=== PATIENT | male | born 1950 | race Caucasian/White ===

== ENCOUNTER 2022-06-23 10:18 | Day surgery (SDC) | payer MEDICARE, BC ==
[2022-06-21 17:21] VITALS: BMI 24.3
[~2022-06-23 10:18] MED LIST: LIDOCAINE 1% (10MG/ML) FOR IV START INTRADERMA PRN
[2022-06-23 10:34] VITALS: TEMP 98
[2022-06-23] MEDS: LACTATED RINGERS 1,000 ML IV SCH ×2 (10:39→12:14)
[2022-06-23] MEDS ORDERED: PROPOFOL 10 MG/ML 20 ML VIAL IV ONE (12:16)
[2022-06-23] MEDS ORDERED: LIDOCAINE 2% INJ 20 MG/ML (2 ML VIAL) ONE (12:16)
--- NOTE | 2022-06-23 12:58 | P.PCN ---
Date of Procedure: 06/23/22 Procedure(s) Performed: BRIEF HISTORY: Patient is a 72-year-old pleasant white male scheduled for an elective colonoscopy as a part of large colon polyp that was noted in the transverse colon noted on a routine screening colonoscopy in January 11. He was noted to have a 4 cm broad-based transverse colon polyp that was partially removed. The biopsy of the polyp reveals adenoma. PROCEDURE PERFORMED: Colonoscopy with snare polypectomy, biopsy, Endo Clip placement and argon plasma coagulation. PREOPERATIVE DIAGNOSIS: Follow-up large transverse colon polyp. IV sedation per Anesthesia. PROCEDURE: After informed consent was obtained, the patient, was brought into the endoscopy unit. IV sedation was administered by Anesthesia under continuous monitoring. Digital rectal examination was normal. Initially the Olympus CF-160 flexible video colonoscope was then inserted in the rectum, gradually advanced into the cecum without any difficulty. Careful examination was performed as the scope was gradually being withdrawn. Ileocecal valve and the appendiceal orifice were visualized and appeared normal. Prep was excellent. Mucosa of the cecum, appeared normal. In the ascending colon there was a 1 cm polyp removed by snare polypectomy. In the mid transverse colon at the site of polypectomy of the large transverse colon there was a 2.5 cm flat residual polyp identified. The polyp was removed by snare polypectomy followed by multiple biopsies. Following this I did have some plasma coagulation for the rest of the residual Polyp. Endo Clip was also placed to prevent post-polypectomy. Rest of the transverse colon, descending colon, sigmoid colon, and rectum appeared normal. Retroflexion was performed in the rectum and no lesions were seen. The patient tolerated the procedure well. IMPRESSION: 2.5 cm residual flat transverse colon polyp at the site of previous polypectomy, status post snare polypectomy followed by multiple biopsies, argon plasma coagulation and Endo Clip placement 1 cm ascending colon polyp status post snare polypectomy RECOMMENDATIONS: Findings of this examination were discussed with the patientas well as his family. He was advised to follow with the biopsy results. Will plan a repeat colonoscopy in one year..
[2022-06-23 13:07] VITALS: RESP 17
[2022-06-23 13:29] VITALS: BP 180/80; PULSE 52
== END 2022-06-23 13:40 | disposition home or self-care (01) ==
LOC: ORWHC2ENDO 10:18
PROVIDERS: ATTEND Internal Medicine Gastroenterology
DX: Z12.11 Encounter for screening for malignant neoplasm of colon (principal); D12.3 Benign neoplasm of transverse colon; Z86.010 Personal history of colon polyps; I10 Essential (primary) hypertension; Z79.899 Other long term (current) drug therapy; F17.200 Nicotine dependence, unspecified, uncomplicated
CPT/HCPCS: 88305; 45382; 45380; 45385; J2704; J2001

== ENCOUNTER → 2024-03-07 | Outpatient (CLI) | payer MEDICARE, BC ==
[2024-03-07 15:35] LABS: Basophils # (A) 0.05 X 10*3/uL (0.00-0.10); Basophils % (A) 0.8 %; Eosinophils # (A) 0.16 X 10*3/uL (0.04-0.35); Eosinophils % (A) 2.5 %; HCT 41.4 % (39.6-50.0); HGB 14.6 g/dL (13.0-17.0); Lymphocytes # (A) 1.14 X 10*3/uL (0.90-5.00); MCH 35.4 pg (27.0-32.0); MCHC 35.3 g/dL (32.0-37.0); MCV 100.2 FL (80.0-97.0); Mean Platelet Volume 9.7 FL (9.5-12.2); Monocytes # (A) 0.49 X 10*3/uL (0.20-1.00); Monocytes % (A) 7.7 %; NRBC Per 100 WBC 0 X 10*3/uL (0.00-0.01); Neutrophils % (A) 70.8 %; Platelet Count 146 X 10*3/uL (140-440); RBC 4.13 X 10*6/uL (4.40-5.60); RDW 12.5 % (11.5-14.5); WBC 6.35 X 10*3/uL (4.50-10.00)
[2024-03-07 16:39] LABS: Hepatitis B Surface Antigen Nonreactive (Nonreactive); Hepatitis C IgG Antibody Nonreactive (Nonreactive)
[2024-03-07 16:40] LABS: % Iron Saturation 55.18 (15.00-50.00); ALT 62 U/L (10-49); AST 60 U/L (14-35); Albumin 4.6 g/dL (3.8-4.9); Albumin/Globulin Ratio 2.42 Ratio (1.60-3.17); Alkaline Phosphatase 61 U/L (41-126); BUN/Creat Ratio 9.18 Ratio (12.00-20.00); Blood Urea Nitrogen 10.1 mg/dL (9.0-27.0); Calcium 9.4 mg/dL (8.7-10.3); Carbon Dioxide 25.2 mmol/L (21.6-31.8); Chloride 102 mmol/L (96-109); Globulin 1.9 g/dL (1.6-3.3); Glucose 96 mg/dL (70-110); Iron 197 UG/DL (65-175); Potassium 4.8 mmol/L (3.5-5.5); Sodium 140 mmol/L (135-145); Total Bilirubin 1.3 mg/dL (0.3-1.2); Total Iron Binding Capacity 357 UG/DL (228-460); Total Protein 6.5 g/dL (6.2-8.2)
[2024-03-07 17:01] LABS: Ceruloplasmin 21.2 mg/dL (20.0-60.0)
== END | disposition home or self-care (01) ==
LOC: LABWHC1 09:27
PROVIDERS: ATTEND Internal Medicine Gastroenterology
DX: R74.01 Elevation of levels of liver transaminase levels (principal)
CPT/HCPCS: 36415; 80053; 82103; 82390; 82728; 83516; 83540; 83550; 85025; 86038; 86803; 87340

== ENCOUNTER → 2024-03-07 | Outpatient (CLI) | payer MEDICARE, BC ==
--- NOTE | 2024-03-07 13:14 | US ---
EXAMINATION TYPE: US liver DATE OF EXAM: 03/07/2024 COMPARISON: NONE CLINICAL INDICATION: Male, 73 years old with history of R74.01 ELEVATION OF LIVER ENZYMES; Patient de nies any signs or symptoms; Hx HTN TECHNIQUE: Multiple sonographic images of the right upper quadrant are obtained. FINDINGS: EXAM MEASUREMENTS: Liver Length: 16.3 cm Gallbladder Wall: 0.2 cm CBD: 0.3 cm Right Kidney: 9.4 x 5.0 x 4.6 cm Pancreas: wnl Liver: Increased attenuation, decreased visualization of vessels suggestive of fatty infiltrate Gallbladder: wnl Evidence for sonographic Dave's sign: No CBD: wnl Right Kidney: wnl IMPRESSION: Steatosis with no other significant abnormality seen.
== END | disposition home or self-care (01) ==
LOC: RADUSWWP 09:08
PROVIDERS: ATTEND Family Medicine
DX: K76.0 Fatty (change of) liver, not elsewhere classified (principal); R74.01 Elevation of levels of liver transaminase levels; I10 Essential (primary) hypertension
CPT/HCPCS: 76705

== ENCOUNTER 2024-04-18 09:23 | Day surgery (SDC) | payer MEDICARE, BC ==
[~2024-04-18 09:23] MED LIST changes: +MIDAZOLAM 2 MG/2 ML VIAL IV PRN
[2024-04-18 09:52] VITALS: TEMP 97.6
[2024-04-18] MEDS: IV FLUID CONTINUATION 1,000 ML IV ONE (10:00)
[2024-04-18] MEDS: LACTATED RINGERS 1,000 ML IV SCH (10:02)
[2024-04-18] MEDS ORDERED: PROPOFOL 10 MG/ML 20 ML VIAL IV ONE (10:41)
--- NOTE | 2024-04-18 11:04 | P.PCN ---
Date of Procedure: 04/18/24 Procedure(s) Performed: BRIEF HISTORY: Patient is a 73-year-old pleasant white male scheduled for an elective colonoscopy as a part of follow-up of by history of colon polyps. Last colonoscopy was 2 years ago and was noted to have a 2 cm residual transverse colon polyp that was removed.. PROCEDURE PERFORMED: Colonoscopy with snare polypectomy. PREOPERATIVE DIAGNOSIS: Follow-up large transverse colon polyp. IV sedation per Anesthesia. PROCEDURE: After informed consent was obtained, the patient, was brought into the endoscopy unit. IV sedation was administered by Anesthesia under continuous monitoring. Digital rectal examination was normal. Initially the Olympus CF-160 flexible video colonoscope was then inserted in the rectum, gradually advanced into the cecum without any difficulty. Careful examination was performed as the scope was gradually being withdrawn. Ileocecal valve and the appendiceal orifice were visualized and appeared normal. Prep was excellent. Mucosa of the cecum, ascending colon, appeared normal. In the distal transverse colon there was a 7 mm residual polyp at the site of previous polypectomy which was removed by snare polypectomy. Rest of the transverse colon, descending colon, appeared normal. The sigmoid colon there was a 5 mm polyp removed by snare polypectomy. Scattered sigmoid diverticulosis seen. Sigmoid colon, and rectum appeared normal. Retroflexion was performed in the rectum and no lesions were seen. The patient tolerated the procedure well. IMPRESSION: 7 mm descending transverse colon polyp at 70 cm from the anal verge s/p polypectomy 5 mm sigmoid colon polyp status post polypectomy Scattered sigmoid diverticulosis RECOMMENDATIONS: Findings of this examination were discussed with the patient as well as his family. He was advised to follow-up with the biopsy results and recommended repeat colonoscopy in 3 years..
[2024-04-18 11:33] VITALS: BP 126/73; PULSE 63; RESP 20
== END 2024-04-18 11:37 | disposition home or self-care (01) ==
LOC: ORWHC2ENDO 09:23
PROVIDERS: ATTEND Internal Medicine Gastroenterology
DX: Z12.11 Encounter for screening for malignant neoplasm of colon (principal); D12.3 Benign neoplasm of transverse colon; D12.5 Benign neoplasm of sigmoid colon; K57.30 Diverticulosis of large intestine without perforation or abscess without bleeding; I10 Essential (primary) hypertension; F17.210 Nicotine dependence, cigarettes, uncomplicated; F10.90 Alcohol use, unspecified, uncomplicated; Z79.899 Other long term (current) drug therapy; Z98.890 Other specified postprocedural states
CPT/HCPCS: 88305; 45385; J2704

== ENCOUNTER 2025-01-18 23:07 | Emergency (ER) | payer MEDICARE, BC ==
[2025-01-18 23:21] VITALS: TEMP 97.6
--- NOTE | 2025-01-18 23:49 | ED ---
Head Injury HPI - General Chief complaint: Head Injury Stated complaint: Fall- head injury Time Seen by Provider: 01/18/25 23:49 Source: patient, family, RN notes reviewed Mode of arrival: ambulatory Limitations: no limitations - History of Present Illness Initial comments: 74-year-old male presented to the ER for evaluation of head injury. Patient sta noble he was getting something out of the refrigerator when he accidentally lost his balance causing him to fall backwards and hit his head on what he believes was the door frame. He notes a laceration to his posterior scalp. He denies any loss of consciousness or blood thinner use. Tetanus is up-to-date. No other injuries or complaints. No dizziness, lightheadedness, nausea or vomiting post incident. - Related Data Home Medications Medication Instructions Recorded Confirmed amLODIPine [Norvasc] 10 mg PO DAILY 06/21/22 04/18/24 Losartan [Cozaar] 25 mg PO DAILY 04/16/24 04/18/24 Allergies/Adverse reactions: Allergies Allergy/AdvReac Type Severity Reaction Status Date / Time No Known Allergies Allergy Verified 01/18/25 23:18 Review of Systems ROS Statement: Those systems with pertinent positive or pertinent negative responses have been documented in the HPI. ROS Other: All systems not noted in ROS Statement are negative. Past Medical History Past Medical History: Hypertension Additional Past Medical History / Comment(s): PAST HX LARGE POLYP History of Any Multi-Drug Resistant Organisms: None Reported Additional Past Surgical History / Comment(s): DENTAL IMPLANTS. COLONOSCOPY WITH PARTIAL POLYPECTOMY Past Anesthesia/Blood Transfusion Reactions: No Reported Reaction Past Psychological History: No Psychological Hx Reported Smoking Status: Current every day smoker Past Alcohol Use History: Daily Past Drug Use History: None Reported - Past Family History Mother Family Medical History: No Reported History General Exam Limitations: no limitations General appearance: alert, in no apparent distress Head exam: Present: other (8 cm laceration noted to right parietal scalp) Eye exam: Present: normal appearance, PERRL, EOMI. Absent: scleral icterus, conjunctival injection, periorbital swelling Pupils: Present: normal accommodation ENT exam: Present: normal exam, normal oropharynx, mucous membranes moist, TM's normal bilaterally, other (No raccoon eyes, mcclain signs or hemotympanums) Neck exam: Present: normal inspection. Absent: tenderness, meningismus, lymphadenopathy Respiratory exam: Present: normal lung sounds bilaterally. Absent: respiratory distress, wheezes, rales, rhonchi, stridor Cardiovascular Exam: Present: regular rate, normal rhythm, normal heart sounds. Absent: systolic murmur, diastolic murmur, rubs, gallop, clicks Neurological exam: Present: alert, oriented X3, CN II-XII intact Skin exam: Present: warm, dry, intact, normal color. Absent: rash Course Vital Signs 01/18/25 01/19/25 23:18 01:20 Temperature 97.6 F Pulse Rate 97 72 Respiratory 16 18 Rate Blood Pressure 166/80 144/91 O2 Sat by Pulse 98 Oximetry Procedures - Laceration Laceration #1 Consent Obtained: verbal consent Indication: laceration Site: scalp Size (cm): 8 Description: flap Depth: simple, single layer Pre-repair: wound explored, irrigated extensively, deep structures intact Type of Sutures: other (Dermal declan) Number of Sutures: 7 Patient Tolerated Procedure: well Medical Decision Making - Medical Decision Making Was pt. sent in by a medical professional or institution (Dr. PA, EDUCATION INSTRUCTOR, urgent care, hospital, or fpc...) When possible be specific @ -No Did you speak to anyone other than the patient for history (EMS, parent, family, police, friend...)? What history was obtained from this source @ -Patient's , at bedside, aiding in HPI and past medical history. Did you review nursing and triage notes (agree or disagree)? Why? @ -I reviewed and agree with nursing and triage notes Were old charts reviewed (outside hosp., previous admission, EMS record, old EKG, old radiological studies, urgent care reports/EKG's, fpc records)? Report findings @ -No old charts were reviewed Differential Diagnosis (chest pain, altered mental status, abdominal pain women, abdominal pain men, vaginal bleeding, weakness, fever, dyspnea, syncope, headache, dizziness, GI bleed, back pain, seizure, CVA, palpatations, mental health, musculoskeletal)? @ -Contusion, hematoma, intracranial hemorrhage, skull fracture, laceration, concussion this list is not meant to be all-inclusive EKG interpreted by me (3pts min.). @ -None done X-rays interpreted by me (1pt min.). @ -None done CT interpreted by me (1pt min.). @ -CT brain negative for acute intracranial process or mass effect. Laceration noted U/S interpreted by me (1pt. min.). @ -None done What testing was considered but not performed or refused? (CT, X-rays, U/S, labs)? Why? @ -None What meds were considered but not given or refused? Why? @ -Patient refused analgesic medications. Did you discuss the management of the patient with other professionals (professionals i.e. , PA, EDUCATION INSTRUCTOR, lab, RT, psych nurse, rn social services, restaurant kitchen and service manager, teacher, evp and chief operating officer, manager rn case)? Give summary @ -No Was smoking cessation discussed for >3mins.? @ -No Was critical care preformed (if so, how long)? @ -No Were there social determinants of health that impacted care today? How? (Homelessness, low income, unemployed, alcoholism, drug addiction, transportation, low edu. Level, literacy, decrease access to med. care, snf, rehab)? @ -No Was there de-escalation of care discussed even if they declined (Discuss DNR or withdrawal of care, Hospice)? DNR status @ -No What co-morbidities impacted this encounter? (DM, HTN, Smoking, COPD, CAD, Cancer, CVA, ARF, Chemo, Hep., AIDS, mental health diagnosis, sleep apnea, morbid obesity)? @ -None Was patient admitted / discharged? Hospital course, mention meds given and route, prescriptions, significant lab abnormalities, going to OR and other pertinent info. @ -Discharge. 74-year-old male presented the ER for evaluation of head injury. There is no acute neurological findings on exam. GCS 15. Laceration noted to right parietal scalp which was closed with dermal declan, see note above. Given patient's age, CT brain was performed and negative. Patient refusing analgesic medications. Tetanus is up-to-date. I advised stable removal in 3 to 5 days. Wound care discussed. Patient discharged stable condition with follow-up to PCP. Return parameters discussed. Patient verbally expressed understanding agree with care plan. Case discussed with ED attending, Dr. Cook. Undiagnosed new problem with uncertain prognosis? @ -No Drug Therapy requiring intensive monitoring for toxicity (Heparin, Nitro, Insulin, Cardizem)? @ -No Were any procedures done? @ -Yes Diagnosis/symptom? @ -Laceration/head injury Acute, or Chronic, or Acute on Chronic? @ -Acute Uncomplicated (without systemic symptoms) or Complicated (systemic symptoms)? @ -Uncomplicated Side effects of treatment? @ -No Exacerbation, Progression, or Severe Exacerbation? @ -No Poses a threat to life or bodily function? How? (Chest pain, [place], [place], pneumonia, PE, COPD, DKA, ARF, appy, cholecystitis, CVA, Diverticulitis, Homicidal, Suicidal, threat to staff... and all critical care pts) @ -No - Radiology Data Radiology results: report reviewed, image reviewed Disposition Clinical Impression: Laceration, Head injury Disposition: HOME SELF-CARE Condition: Stable Instructions (If sedation given, give patient instructions): [facility] (ED) Additional Instructions: You may take [id number] ibuprofen and Tylenol for pain control. Have declan removed in 3 to 5 days. Follow-up with PCP. Return to the ER for any new or worsening concerns. Is patient prescribed a controlled substance at d/c from ED?: No Referrals: Pasquale Gregory MD [Primary Care Provider] - 1-2 days Time of Disposition: 01:00
--- NOTE | 2025-01-19 00:38 | CT ---
EXAM: CT Head Without Intravenous Contrast CLINICAL HISTORY: ITS.REASON CT Reason: head injury TECHNIQUE: Axial computed tomography images of the head/brain without intravenous contrast. CTDI is 49.1 mGy and DLP is 1203 mGy-cm. This CT exam was performed using one or more of the following dose reduction techniques: automated exposure control, adjustment of the mA and/or kV according to patient size, and/or use of iterative reconstruction technique. COMPARISON: No relevant prior studies available. FINDINGS: No acute intracranial hemorrhage. No midline shift or mass effect. The territorial brumfield-white matter differentiation is maintained throughout. Age-related cerebral volume loss. Periventricular and subcortical white matter hypoattenuation, consistent with chronic microangiopathy. The visualized orbits appear grossly unremarkable. The calvarium is intact. RIGHT parietal scalp laceration. The visualized paranasal sinuses and mastoid air cells are grossly clear. IMPRESSION: No acute intracranial hemorrhage, midline shift, or mass effect. RIGHT parietal scalp laceration.
[2025-01-19 01:21] VITALS: BP 144/91; PULSE 72; RESP 18
== END 2025-01-19 01:22 | disposition home or self-care (01) ==
LOC: EC 23:07
DX: S01.01XA Laceration without foreign body of scalp, initial encounter (principal); F17.200 Nicotine dependence, unspecified, uncomplicated; W01.198A Fall on same level from slipping, tripping and stumbling with subsequent striking against other object, initial encounter
CPT/HCPCS: 12004; 70450; 99283